=== PATIENT | male | born 1960 | race African-American/Black ===

== ENCOUNTER 2016-06-03 16:20 | Emergency (ER) ==
[~2016-06-03 16:20] MED LIST: ATROPINE SYRINGE ONE; CORDARONE ONE; EPINEPHRINE SYRINGE ONE; NARCAN ONE
[2016-06-03] MEDS ORDERED: LEVOPHED 8 MG in D5 1/2 NS 250 ML IV SCH (17:00)
[2016-06-03 17:33] VITALS: BP 88/38
--- NOTE | 2016-06-03 17:34 | PROVIDER DOCUMENTATION ---
HPI-Critical Care - General Source: patient - History of Present Illness-Critical Care Location of Pain/Injury: reports: none Quality of Pain: reports: none Severity in ED: reports: mild Onset/Duration: reports: just prior to arrival Associated Symptoms: reports: shortness of breath, weakness - Cardiopulmonary Resuscitation Witnessed arrest?: Yes Noted by:: other (Dr. Meza and diego) Bystander CPR?: No Down-time before ACLS? (in minutes, if known): 1 Reason for Code Blue?: full arrest CPR initiated before doctor arrival?: No Initial Findings: unresponsive, no respirations, no pulse - Pronouncement Family notified?: Yes <Smita Stroud - Last Filed: 06/03/16 17:24> - History of Present Illness-Critical Care Location of Pain/Injury: reports: none Quality of Pain: reports: none Severity in ED: reports: severe Onset/Duration: reports: unsure Timing: reports: still present Pre-hospital Treatment: Initiated oxygen Associated Symptoms: reports: other (Unknown) Improves Condition (Modifying Factors): improves with: nothing Prior Chest Pain/Cardiac Workup: reports: no prior chest pain Similar Symptoms Previously?: No Recently Seen Here or By Another Healthcare Provider: No <Maximilian Meza - Last Filed: 06/03/16 18:20> - General Chief Complaint: Shortness of Breath Stated Complaint: Weakness,Throat Pain Time Seen by Provider: 06/03/16 16:30 Allergies/Adverse Reactions: Allergies Allergy/AdvReac Type Severity Reaction Status Date / Time lisinopril Allergy Unknown Verified 06/03/16 16:24 Home Medications: Fenofibrate Nanocrystallized [Tricor] 145 mg PO DAILY 01/11/13 Hum Insulin NPH/Reg Insulin Hm [Novolin 70-30 100 Unit/ml Vial] 35 units SQ BID 01/11/13 Ranitidine [Zantac] 150 mg PO BID 01/11/13 Verapamil HCl [Verapamil ER] 360 mg PO QAM 01/11/13 PRAVAstatin [Pravachol] 40 mg PO QHS 10/21/15 Clonidine [Catapres] 0.1 mg PO BID 04/11/16 Cyanocobalamin S.l. [Vitamin B-12] 2,500 microgm SL DAILY 04/11/16 Ferrous Sulfate [Iron] 325 mg PO DAILY 04/11/16 Hydrochlorothiazide 25 mg PO QAM 04/11/16 Metoprolol Succinate E.r. [Toprol Xl] 150 mg PO DAILY 04/11/16 Minoxidil 2 tab PO DAILY 04/11/16 Fluconazole 100 mg PO DAILY 06/03/16 Folic Acid 1 mg PO DAILY 06/03/16 Metoclopramide [Reglan] 10 mg PO DAILY 06/03/16 Promethazine [Phenergan] 25 mg PO Q6H PRN PRN 06/03/16 - History of Present Illness-Critical Care Nature of Presenting Problem: pt arrived at ED at 1620 by ems bp 90/59. went to room at 16:32 pt was gasping for air foaming at the mouth unresponsive heart rate was 32 on monitor resuscitation started immediately environmental monitoring technician and nurse ran into the room. Pt has stage 4 throat cancer went through seven rounds of chemo. recently checked RUE for blood clot dr warned him about cancer severity and pt buddhist friend came. (Smita Stroud) When I took my scribe with me to see pt at 1632 - pt was here at 16:20 and was responsive and he was on monitor. After i WALKED INTO HIS ROOM, The environmental monitoring technician and nurse were also running to his room as well because on the monitor, his heart rate was down to 30s, I found pt was unresponsive and resuscitation started immediately. Details for the code sheet. Pt has stage IV throat cancer with aggressive behavior and he has gone through 10 rounds of chemo/radiation therapy. (Maximilian Meza) Review of Systems - Adult - REVIEW OF SYSTEMS - ADULT ROS:: unobtainable per condition Constitutional: reports: fatique. denies: chills, night sweats Eyes: reports: no symptoms reported Cardiovascular: reports: see HPI Respiratory: reports: see HPI, other (Agnal breathing) Gastrointestinal: reports: no symptoms reported Genitourinary: reports: no symptoms reported Musculoskeletal: reports: no symptoms reported Neurological: reports: see HPI Psychiatric: reports: see HPI All Other Systems: Reviewed and Negative <Maximilian Meza - Last Filed: 06/03/16 18:20> Past History - Adult - PAST MEDICAL HISTORY-ADULT Major Childhood Illnesses: reports: denies history Cardiovascular: reports: HTN Respiratory: reports: denies history Gastrointestinal: reports: denies history Obstetrical/Gynecological: reports: denies history Genitourinary: reports: denies history Musculoskeletal: reports: denies history Neurological: reports: denies history Psychiatric: reports: denies history Endocrine/Immune: reports: Diabetes Other Conditions: reports: denies history - PRIOR SURGERIES/PROCEDURES Surgical/Procedure History: reports: none - PRIOR HOSPITALIZATIONS Prior Hospitalizations: reports: none - IMMUNIZATION STATUS Childhood Immunizations: See Nurse Assessment Flu Vaccine: See Nurse Assessment - FAMILY HISTORY Family History: reviewed, not pertinent <Smita Stroud - Last Filed: 06/03/16 17:24> Physical Exam-General - PHYSICAL EXAM-ADULT Initial Vital Signs Reviewed: Yes - CONSTITUTIONAL General Appearance: other (Unresponsive and resuscitation started with intubation.) - EYES Eyes: PERRL/EOMI - HEAD, EARS, NOSE, MOUTH & THROAT HENMT: normocephalic/atraumatic, moist mucous membranes - NECK Neck: non-tender, full range of motion, supple - RESPIRATORY Respiratory: lungs clear, other (With ambu-bag) - CARDIOVASCULAR Cardiovascular: other (Pt was pulseless on initial eval.) - GASTROINTESTINAL (ABDOMEN) Abdominal Exam: non tender, soft, no organomegaly - MUSCULOSKELETAL Back Exam: normal inspection, no CVA tenderness Extremity: normal range of motion, non-tender, normal gait, normal inspection - SKIN Integumentary: normal color, normal turgor, warm/dry - NEUROLOGIC Neurologic: grossly normal, no motor/sensory deficits - PSYCHIATRIC Psych/Mental Status: other (Unresponsive) <Maximilian Meza - Last Filed: 06/03/16 18:20> Progress <Smita Stroud - Last Filed: 06/03/16 17:24> - REASSESSMENT Reassessment #1 Time Reassessed: 18:16 Status: other (Pt was pronounced at 17:15P. I discussed with pt's friend and his brother for the details for the rescitation and the possible causes of the , including but not limited to UT/Cancer complications/CVA/PE, etc. They understood the situation well.) <Maximilian Meza - Last Filed: 06/03/16 18:20> - PLAN OF CARE/RESULTS Progress/Plan/Lab Results: Vital Signs Temp Pulse Resp BP Pulse Ox 06/03/16 17:05 35 H 88/38 06/03/16 17:00 98 06/03/16 16:42 50 L 17 06/03/16 16:21 98.3 F 75 18 90/59 98 lisinopril Allergy (Verified 06/03/16 16:24) Unknown Fenofibrate Nanocrystallized [Tricor] 145 mg PO DAILY 01/11/13 Hum Insulin NPH/Reg Insulin Hm [Novolin 70-30 100 Unit/ml Vial] 35 units SQ BID 01/11/13 Ranitidine [Zantac] 150 mg PO BID 01/11/13 Verapamil HCl [Verapamil ER] 360 mg PO QAM 01/11/13 PRAVAstatin [Pravachol] 40 mg PO QHS 10/21/15 Clonidine [Catapres] 0.1 mg PO BID 04/11/16 Cyanocobalamin S.l. [Vitamin B-12] 2,500 microgm SL DAILY 04/11/16 Ferrous Sulfate [Iron] 325 mg PO DAILY 04/11/16 Hydrochlorothiazide 25 mg PO QAM 04/11/16 Metoprolol Succinate E.r. [Toprol Xl] 150 mg PO DAILY 04/11/16 Minoxidil 2 tab PO DAILY 04/11/16 Hydrocodone/APAP 5 mg/325 mg [[place]-5] 1 each PO Q4H PRN PRN #30 tablet Fluconazole 100 mg PO DAILY 06/03/16 Folic Acid 1 mg PO DAILY 06/03/16 Metoclopramide [Reglan] 10 mg PO DAILY 06/03/16 Promethazine [Phenergan] 25 mg PO Q6H PRN PRN 06/03/16 Orders Category Date Time Status Dextrose 5%-0.45% NaCl Inj [D5 1/2 Ns] 250 ml Med 06/03/16 17:00 Active Norepinephrine [Levophed] 8 mg IV As Directed (Maximilian Meza) Departure <Smita Stroud - Last Filed: 06/03/16 17:24> - Departure Time of Disposition Order: 18:17 Certified Medical Emergency: Emergent - Critical Care Note Total Time (mins): 60 Critical Care Statement: This patient required my direct personal management to treat or rule out processes, the absence of which, could potentiallly result in sudden, clinically significant life or limb threatening deterioration. <Maximilian Meza - Last Filed: 06/03/16 18:20> - Departure DIAGNOSIS: Cardiopulmonary arrest, Throat cancer Disposition: 20 Condition: Referrals: None,PCP [Primary Care Provider] - Physician Attestation
== END 2016-06-03 17:15 | disposition expired ==
LOC: EDBD → ED 16:20
DX: I46.9 Cardiac arrest, cause unspecified (principal); C14.0 Malignant neoplasm of pharynx, unspecified; R06.02 Shortness of breath; R53.1 Weakness; J02.9 Acute pharyngitis, unspecified; R53.83 Other fatigue; R00.1 Bradycardia, unspecified; I10 Essential (primary) hypertension; Z79.899 Other long term (current) drug therapy; E11.9 Type 2 diabetes mellitus without complications; Z79.4 Long term (current) use of insulin
CPT/HCPCS: 82948; 92950; 96374; J0171; J0282; J0461; J2310; 99285-25